=== PATIENT | male | born 1960 | race African-American/Black ===

== ENCOUNTER 2017-11-09 08:22 | Emergency (ER) | payer MEDICARE, MEDICAID ==
[~2017-11-09] VITALS: Ht 175.3 cm; Wt 78.0 kg
[2017-11-09] MEDS ORDERED: ARIP2TAB3 PO (08:36)
[2017-11-09] MEDS ORDERED: BUPR100T5 PO (08:36)
[2017-11-09 15:29] LABS: BASOPHILS % 0.8 % (0.0-2.0); HEMATOCRIT. 40.7 % (42.0-52.0); HEMOGLOBIN. 13.7 g/dL (14.0-18.0); LYMPHOCYTES % 34.5 % (20.0-50.0); MEAN CORPUSCULAR HEMOGLOBIN 32.8 pg (28.0-32.0); MEAN CORPUSCULAR VOLUME 97.7 fL (80.0-94.0); NEUTROPHILS % 49.7 % (40.0-76.0); PLATELET 232 x1000/uL (130-400); RED BLOOD CELL COUNT 4.17 mill/uL (4.7-6.1); RED CELL DISTRIBUTION WIDTH 12.5 % (11.6-14.6)
[2017-11-09 15:37] LABS: CHLORIDE 104 mEq/L (98-107); ETHANOL BLOOD < 10 mg/dL
[2017-11-09 16:41] VITALS: BP 168/86
== END 2017-11-09 16:43 | disposition home or self-care (01) ==
LOC: ER 08:22
DX: S22.31XA Fracture of one rib, right side, initial encounter for closed fracture (principal); V13.4XXA Pedal cycle driver injured in collision with car, pick-up truck or van in traffic accident, initial encounter; Y93.55 Activity, bike riding; Y92.410 Unspecified street and highway as the place of occurrence of the external cause; J98.11 Atelectasis; E03.9 Hypothyroidism, unspecified; F17.210 Nicotine dependence, cigarettes, uncomplicated; Z88.2 Allergy status to sulfonamides; Z88.8 Allergy status to other drugs, medicaments and biological substances
CPT/HCPCS: 36415; 71045; 80053; 85025; 93005; 99285; G0482